=== PATIENT | male | born 1975 | race Two or more races ===

== ENCOUNTER 2016-12-30 18:00 | Emergency (ER) | payer BC ==
[~2016-12-30] VITALS: Ht 177.8 cm; Wt 93.0 kg
[2016-12-30 19:00] VITALS: BP 136/76
[2016-12-30] MEDS ORDERED: HYDR-971 PO (20:02)
--- NOTE | 2016-12-30 20:03 | PHYS DOC ---
Past Medical History Past Medical History: No Pertinent History Past Surgical History: Other Additional Past Surgical Histo: right wrist, r elbow, left wrist Additional Information: nonsmoker Alcohol Use: Occasionally Drug Use: None Adult General Chief Complaint Chief Complaint: TOE PROBLEM HPI HPI Patient is a 41 year old male who presents with right 4th toe pain starting yesterday after falling down the stairs. He denies hitting his head or loss of consciousness. He does not have any other injuries. He has been ambulatory since the injury. He denies numbness or tingling in the toes. His PCP is Dr. Green. Review of Systems Review of Systems Constitutional: Denies fever or chills. [] Musculoskeletal: Denies back pain or joint pain. Reports right 4th toe pain. Integument: Denies rash or skin lesions. Reports right 4th toe ecchymosis. Neurologic: Denies headache, focal weakness or sensory changes. Denies loss of consciousness. Allergies Allergies Allergies Coded Allergies Type Severity Reaction Last Updated Verified No Known Drug Allergies 12/30/16 No Physical Exam Physical Exam Constitutional: Well developed, well nourished, no acute distress, non-toxic appearance. [] HENT: Normocephalic, atraumatic, oropharynx moist. [] Eyes: PERRLA, EOMI, conjunctiva normal, no discharge. [] Skin: Warm, dry, no erythema, no rash. Ecchymosis of the right 4th toe. Extremities: Right 4th toe tenderness, ROM intact, minimal edema. 2+ DP pulse. Less than 2 second capillary refill in the toes distally. Light touch sensation intact in the toes distally. Neurologic: Alert and oriented X 3, normal motor function, normal sensory function, no focal deficits noted. [] Psychologic: Affect normal, judgement normal, mood normal. [] Current Patient Data Vital Signs Vital Signs Date Time Temp Pulse Resp B/P Pulse Ox O2 Delivery O2 Flow Rate FiO2 12/30/16 19:00 97.8 66 20 95 Room Air 97.8 EKG EKG [] Radiology/Procedures Radiology/Procedures Three-view x-ray of the right foot reviewed and interpreted by myself. There is a fracture of the base of the proximal phalanx of the right fourth toe. Course & Med Decision Making Course & Med Decision Making Pertinent Labs and Imaging studies reviewed. (See chart for details) Patient presents with right fourth toe pain after injury yesterday. He is ambulatory. He is neurovascularly intact without evidence of compartment syndrome. X-ray shows a fracture of the proximal phalanx of the toe. He is provided with a postop shoe for ambulation. He is given contact information for orthopedics for follow-up. He is discharged home with prescription for Brooten. Return precautions were discussed. He verbalizes understanding and agrees with plan. Dragon Disclaimer Dragon Disclaimer This electronic medical record was generated, in whole or in part, using a voice recognition dictation system. Departure Departure Impression: Primary Impression: Phalanx fracture, foot Disposition: HOME, SELF-CARE Condition: STABLE Referrals: SEAMUS GREEN (PCP) RODRÍGUEZ JAY II, MD Patient Instructions: Toe Fracture, [id number] Additional Instructions: You were seen for a broken toe. Please wear the provided shoe for fracture support instability with walking. Please take the prescribed pain medication as directed. Do not drive or operate heavy machinery while taking pain medication. Please follow-up with the orthopedic doctor listed below. Return to the emergency department if you have any new or concerning symptoms. Scripts Hydrocodone/Apap 5-325 (Brooten 5-325 Tablet)1 Each Tablet1 Tab PO PRN Q6HRS PRN PAIN #20 TAB Prov:ATA SOSA 12/30/16 Problem Qualifiers Primary Impression: Phalanx fracture, foot Encounter type: initial encounter Toe: lesser toe Fracture type: closed Phalanx: proximal Fracture alignment: nondisplaced Laterality: right Qualified Code: S92.514A - Nondisplaced fracture of proximal phalanx of right lesser toe(s), initial encounter for closed fracture ATA SOSA Dec 30, 2016 20:03
--- NOTE | 2016-12-31 09:00 | RAD ---
Examination: 3 views of the right fourth toe History: History of injury to the right fourth toe Comparison: None available Findings: There is mild displaced transverse fracture of the proximal portion of the proximal phalanx of the fourth toe. Impression: Mild displaced transverse fracture of the proximal portion of the proximal phalanx of the fourth toe.
== END 2016-12-30 20:15 | disposition home or self-care (01) ==
LOC: ER 18:00
DX: S92.514A Nondisplaced fracture of proximal phalanx of right lesser toe(s), initial encounter for closed fracture (principal); W10.8XXA Fall (on) (from) other stairs and steps, initial encounter; Y93.89 Activity, other specified; Y92.89 Other specified places as the place of occurrence of the external cause; Y99.8 Other external cause status
CPT/HCPCS: 73660; 99284